=== PATIENT | female | born 1985 | race Caucasian/White ===

== ENCOUNTER 2024-06-01 18:08 | Observation (INO) | payer OTHER, SELFPAY ==
[2024-06-01 18:09] VITALS: BP 143/98; PULSE 72; RESP 16; TEMP 36.3; O2SAT 100; BMI 35.8
--- NOTE | 2024-06-01 18:58 | EDS_ITS ---
HPI History of Present Illness Chief Complaint: Abd Pain [facility] Medical History (Updated 08/12/20 @ 10:[address] Josh Morales MD) Insulin resistance PCOS (polycystic ovarian syndrome) H/O Loco thyroiditis Hypothyroid Home Medications ?Medication ?Instructions ?Recorded ?Last Taken ?Type levothyroxine 125 mcg capsule 125 mcg PO DAILY #90 cap s 08/12/20 Unknown Rx spironolactone 50 mg tablet ea PO 08/12/20 Unknown His tory Allergy/AdvReac Type Severity Reaction Status Date / Time No Known Allergies Allergy Unverified 08/12/20 09:44 Social History Smoking Status: Never smoker EXAM Physical Exam Const Vital Signs: 06/01/24 18:09 06/01/24 20:22 06/01/24 22:00 Temperature 97.3 F L Temperature Source Temporal Pulse Rate 72 67 79 Respiratory Rate 16 18 16 Blood Pressure 143/98 H 136/79 H 135/78 H Blood Pressure Mean 113 98 97 Pulse Ox 100 100 98 Oxygen Delivery Method Room Air Room Air Room Air MDM MDM MDM Narrative Medical decision making narrative: \ HISTORY OF PRESENT ILLNESS: Patient is a female history of PCOS presents right lower quadrant abdominal pain. The patient states 4 days of right sided mid abdominal pain. It is worse with food. Notes bloating and burping. Denies vomiting but notes nausea. Denies melena hematochezia. Denies history of abdominal surgeries. Denies urinary complaint such as frequency urgency or dysuria. Denies vaginal bleeding or discharge. REVIEW OF SYSTEMS: Pertinent positives: Abdominal pain Pertinent negatives: Vomiting PHYSICAL EXAM: Nursing triage notes reviewed, Vital signs reviewed Constitutional: please see mdm HENT: MMM Eyes: Pupils equal round and reactive to light, Extraocular muscles intact Neck: No stridor, no JVD, full neck ROM Lungs: Clear to auscultation, No wheezing or rales. No increased work of breathing, no conversational dyspnea, no accessory muscle use, no nasal flaring. No respiratory distress noted Heart: Regular rate and rhythm, No murmurs, No rubs and No gallops, 2+ distal pulses (radial, femoral, posterior tibial) in all extremities Abdomen: Soft, diffuse TTP, no rigidity, rebound or guarding, no obvious peritoneal signs, no palpable pulsatile abdominal masses, no auscultated abdominal bruit : No CVAT Extremities: No edema Neuro: No new focal neurological deficits, cranial nerves II through XII intact, 5/5 strength in all present extremities. Intact sensation to light touch in all present extremities, 2+ reflexes bilateral patella tendons. Skin: No rash or lesions noted MEDICAL DECISION MAKING: Chief Complaint: As per HPI External records reviewed: Reviewed prior imaging studies Factors affecting care: as per [facility] Social determinants of health: Denies alcohol History obtained from others: none Consults: none [facility] Narrative: The patient was initially hemodynamically stable, afebrile and nontoxic-zara earing. Exam with diffuse TTP but no peritoneal signs. I considered the following differential diagnosis: AAA, small bowel obstruction, abdominal perforation, appendicitis, pancreatitis, hepatobiliary pathology (acute cholecystitis), mesenteric ischemia, pathology (ie nephrolithiasis, pyelonephritis). I obtained a broad lab and imaging workup to further elucidate etiology of patient's complaints. I initially treated the patient with 4 mg of IV Zofran and 20 mg of IV Pepcid. ALL IMAGES (IF OBTAINED) HAVE BEEN PERSONALLY REVIEWED AND INTERPRETED BY MYSELF. Urine test negative CBC without leukocytosis, severe anemia, no thrombocytopenia. CMP without evidence of acute kidney injury, significant electrolyte abnormality, anion gap to suggest end organ hypo-perfusion, no evidence of metabolic acidosis with a normal bicarbonate, no evidence of hepatobiliary obstructive pathology Lipase is wnl indicating no pancreatic inflammation. CT scan of the abdomen pelvis shows concern for gallbladder sludge, pericholecystic fluid potentially acute cholecystitis. Will obtain a right upper quadrant ultrasound. Her precautions pending at this time On re-evaluation patient continues to complain of mild right side abdominal pain. Will give 2 mg IV morphine. Continues have a negative Gardner sign and no peritoneal signs. Ordered right upper quadrant ultrasound. Ultrasound is pending at this time. Signed out to p.m. physician pending ultrasound result and final disposition. The patient and/or family, caregivers express understanding. The patient and/or family, caregivers agrees with the plan. Shared decision making: I will have a discussion with the patient and or visitors regarding risk/benefits of further testing or admission. They will be made aware of of the risk/benefits inherent in this decision they will be given the opportunity to voice understanding. Total critical care time today provided was at least 0 minutes. This excludes separately billable procedures. Critical care time (if documented) is secondary to the patient having high probability of clinically significant/life threatening deterioration in the patient's condition which required my urgent intervention. Impression: 1. Acute abdominal pain 2. Gallbladder sludge Dispo: [] This note was generated with [facility] dictation software. It may contain incorrect words, spelling, and punctuation that were not noted in review of the chart prior to signing. Lab Data Labs: Laboratory Results - last 24 hr 06/01/24 06/01/24 18:25 20:25 WBC 8.4 RBC 5.18 Hgb 14.6 Hct 42.5 MCV 82.0 MCH 28.2 MCHC 34.4 RDW Std Deviation 38.5 RDW Coeff of Ashley 12.9 Plt Count 326 MPV 10.0 Immature Gran % (Auto) 0.400 Neut % (Auto) 57.6 Lymph % (Auto) 31.9 [place] % (Auto) 8.3 Eos % (Auto) 1.3 Baso % (Auto) 0.5 Absolute Neuts (auto) 4.9 Absolute Lymphs (auto) 2.69 Nucleated RBC % 0 Sodium 140 Potassium 3.6 Chloride 106 Carbon Dioxide 20.2 L Anion Gap 14 BUN 10 Creatinine 0.81 Estim Creat Clear Calc 118.89 Est GFR (MDRD) Non-Af 97 BUN/Creatinine Ratio 12.7 Glucose 67 L Calcium 9.1 Total Bilirubin 0.20 AST 24 ALT 21 Alkaline Phosphatase 65 Total Protein 6.4 Albumin 4.1 Globulin 2.3 Albumin/Globulin Ratio 1.8 Lipase 34 Urine Test Negative Radiography Diagnostic Testing: Clinical Impression(s) from Imaging Studies Abdomen/Pelvis CT 06/01/24 19:46 IMPRESSION: Probable gallbladder sludge with gallbladder wall thickening and pericholecystic fluid. Moderate extrahepatic biliary ductal dilation. No intrahepatic biliary ductal dilation. Correlation with focused right upper quadrant ultrasound is recommended. Reading Location: [facility] Discharge Plan Triage Chief Complaint: Abd Pain ED Provider: Kiet White Dx/Rx/DC Orders Prescriptions: No Action spironolactone 50 mg tablet PO Patient Comments: take 1 tablet by mouth once daily for 1 week then INCREASE to 2 tablets daily levothyroxine 125 mcg capsule 125 mcg PO DAILY Qty: 90 3RF Primary Care Provider: Lora Diego Referrals: Johnathon,Lora PA, PA [Primary Care Provider] - Print Language: Ghanaian
--- NOTE | 2024-06-01 19:46 | CT_ITS ---
PROCEDURE: ABDOMEN/PELVIS W IV CONT ONLY 06/01/2024 REASON FOR EXAM: 38-year-old female, right lower quadrant abdominal pain x5 days with nausea. History of PCOS. TECHNIQUE: Abdomen and pelvis CT with intravenous contrast. Coronal and Sagittal reconstruction series were provided. PATIENT PREPARATION: Per protocol ORAL CONTRAST TYPE: None. CONTRAST: Isovue-300 VOLUME: 100mL One or more dose reduction techniques were used (e.g., Automated exposure control, adjustment of the mA and/or kV according to patient size, use of iterative reconstruction technique. RADIATION DOSE SUMMARY: CTDlvol: 30 mGy DLP: 1100 mGycm COMPARISON: None. FINDINGS: Lung bases: The lung bases are clear. The heart is normal in size. Liver: The liver is normal in size without focal hepatic mass. The major portal veins are patent. No biliary ductal dilation. Gallbladder: Probable sludge within the gallbladder with mild gallbladder wall thickening and pericholecystic fluid. Moderate extrahepatic biliary ductal dilation. Spleen: Unremarkable. Pancreas: Unremarkable. Adrenals: Unremarkable. Kidneys: No hydronephrosis or nephrolithiasis. Small bilateral renal cysts and additional hypodensities. Bladder: Decompressed. Reproductive Organs: Normal uterine size and contour. Ovaries are unremarkable with physiologic left corpus luteum. Bowel: The bowel loops are normal in caliber. No ascites or pneumoperitoneum. Normal appendix. Lymph nodes: Prominent periportal and central mesenteric lymph node, likely reactive. Vasculature: The abdominal aorta and IVC are normal. Bones: Mild degenerative changes of the thoracolumbar spine. No aggressive osseous lesions. CT/Abdomen/Pelvis W IV Cont ONLY IMPRESSION: Probable gallbladder sludge with gallbladder wall thickening and pericholecysti c fluid. Moderate extrahepatic biliary ductal dilation. No intrahepatic biliary ductal dilation. Correlation with focused r ight upper quadrant ultrasound is recommended. Reading Location: [id number]
[2024-06-01] MEDS: Ondansetron 4 MG/2 ML Vial IV (19:53)
[2024-06-01 19:57] LABS: Absolute Lymphocyte Count 2.69 X10^3/uL (0.83-4.51); Absolute Neutrophil Count 4.9 X10^3/uL (2.0-7.7); Basophil# 0.04 X10^3/uL; Basophil% 0.5 % (0-1); Eosinophil# 0.11 X10^3/uL; Eosinophils% 1.3 % (0-5); Hematocrit 42.5 % (37-47); Hemoglobin 14.6 g/dL (12.0-15.0); Lymphocyte # 2.69 X10^3/ul (0.83-4.51); Lymphocyte % 31.9 % (19-41); Mean Corp Hgb Conc 34.4 g/dL (32-36); Mean Corpuscular Hgb 28.2 pg (27.0-32.0); Monocyte% 8.3 % (0-10); NRBC Flagged by Analyzer 0 % (0-5); Neutrophil # 4.85 X10^3/uL (2.7-7.7); Neutrophil % 57.6 % (47-70); Platelet Count 326 K/mm3 (150-450); RBC Distribution Width CV 12.9 % (11.6-14.6); RBC Distribution Width SD 38.5 fl (35.1-43.9); Red Blood Count 5.18 M/mm3 (4.2-5.4); White Blood Count 8.4 K/mm3 (4.4-11.0)
[2024-06-01] MEDS: Famotidine 200 MG/20 ML MDV 20 MG in 0.9% Normal Saline (Pres. free 8 ML 300 MG IV (20:03)
[2024-06-01] MEDS: Sucralfate 1 GM Tablet PO (20:03)
[2024-06-01 20:22] VITALS: BP 136/79; PULSE 67; RESP 18; O2SAT 100
[2024-06-01 20:36] LABS: Internal QC Validated? YES +Cl - CLEAR BKGD
[2024-06-01 20:37] LABS: Pregnancy, Urine Negative Negative
[2024-06-01 20:38] LABS: ALB/GLOB Ratio 1.8 RATIO (0.9-2.4); AST(SGOT) 24 U/L (<=31); Alanine Aminotransfer ALT/SGPT 21 U/L (<=34); Albumin, Serum 4.1 g/dL (3.5-5.0); Alkaline Phosphatase 65 U/L (35-104); Anion Gap 14 (5-15); BUN 10 mg/dL (4-19); BUN/Creat Ratio 12.7 RATIO (10-20); Calcium,Total 9.1 mg/dL (7.6-11.0); Carbon Dioxide 20.2 mmol/L (21.0-32.0); Chloride 106 mmol/L (98-108); Creatinine, Serum 0.81 mg/dL (0.70-1.20); EST Glomerular Filtration Rate 97 (>60); Estimated Creatinine Clearance 118.89 ml/min (50-250); Globulin 2.3 g/dL (2.2-4.2); Glucose 67 mg/dL (70-99); Lipase 34 U/L (13-75); Potassium 3.6 mmol/L (3.3-5.1); Protein, Total 6.4 g/dL (5.9-8.4); Sodium Level 140 mmol/L (133-145)
[2024-06-01 22:00] VITALS: BP 135/78; PULSE 79; RESP 16; O2SAT 98
--- NOTE | 2024-06-01 22:55 | US_ITS ---
PROCEDURE: GALLBLADDER 06/01/2024 REASON FOR EXAM: 38-year-old female, right-sided abdominal pain. COMPARISON: Same day CT abdomen pelvis. FINDINGS: Liver: Grossly normal size and echotexture. Normal in size measuring 15.5 cm. Gallbladder: Normal in size with layering sludge/stones, with posterior acoustic shadowing. The gallbladder is thickened. No pericholecystic fluid. Positive Gardner sign reported by the registered vascular technologist (rvt). Common bile duct: Normal measuring 0.6 cm. Pancreas: Visualized portions are sonographically unremarkable. Other: Visualized portions of the right kidney are unremarkable. No right upper quadrant ascites. US/Gallbladder IMPRESSION: Findings compatible with acute cholecystitis. Reading Location: [id number]
[2024-06-01] MEDS: Ketorolac 15 MG/ML Vial IV (23:40)
[2024-06-02] VITALS (15 sets, daily range): BP systolic 112–144; BP diastolic 66–90; PULSE 53–88; RESP 16–18; TEMP 36.5–37.2; O2SAT 97–100; BMI 35.7
[2024-06-02] MEDS: Piperacil/Tazobactam 3.375 GM in 0.9% Normal Saline (50mL MB+) 50 ML IV ×2 (01:04→06:17)
--- NOTE | 2024-06-02 01:24 | EKG12_ITS ---
Test Reason : PRE OP Blood Pressure : */* mmHG Vent. Rate : 61 BPM Atrial Rate : 61 BPM P-R Int : 158 ms QRS Dur : 96 ms QT Int : 460 ms P-R-T Axes : 15 52 30 degrees QTcB Int : 463 ms Normal sinus rhythm Normal ECG No previous ECGs available Confirmed by JOVANNA CARRANZA, ZACH ([id number]), video effects editor LEO KOCH ([id number]) on 06/06/2024 8:32:05 AM Referred By: Confirmed By: ZACH NUGENT MD
[2024-06-02 02:12] LABS: Free T3 2.8 pg/mL (2.18-3.98); Thyroid Stim Hormone (TSH) 0.751 uIU/mL (0.300-4.200)
[2024-06-02] MEDS: 0.9% Normal Saline (1000mL) 1,000 ML 120 ML IV (02:52)
[2024-06-02] MEDS: Pantoprazole Sodium 40 MG in 0.9% Normal Saline (100mL MB+) 100 ML 330 MG IV ×2 (02:53→12:21)
[2024-06-02 06:54] LABS: Absolute Lymphocyte Count 2.52 X10^3/uL (0.83-4.51); Absolute Neutrophil Count 4.4 X10^3/uL (2.0-7.7); Basophil# 0.04 X10^3/uL; Basophil% 0.5 % (0-1); Eosinophil# 0.12 X10^3/uL; Eosinophils% 1.5 % (0-5); Hematocrit 40.3 % (37-47); Hemoglobin 13.6 g/dL (12.0-15.0); Lymphocyte # 2.52 X10^3/ul (0.83-4.51); Lymphocyte % 32.5 % (19-41); Mean Corp Hgb Conc 33.7 g/dL (32-36); Mean Corpuscular Hgb 27.7 pg (27.0-32.0); Mean Corpuscular Volume 82.1 fL (81-99); Mean Platelet Vol. 9.6 fl (6.2-12.0); Monocyte# 0.63 X10^3/uL; Monocyte% 8.1 % (0-10); NRBC Flagged by Analyzer 0 % (0-5); Neutrophil # 4.42 X10^3/uL (2.7-7.7); Neutrophil % 57.1 % (47-70); Platelet Count 261 K/mm3 (150-450); RBC Distribution Width CV 12.9 % (11.6-14.6); RBC Distribution Width SD 38.2 fl (35.1-43.9); Red Blood Count 4.91 M/mm3 (4.2-5.4); White Blood Count 7.8 K/mm3 (4.4-11.0)
--- NOTE | 2024-06-02 07:22 | PCM.HP.STD ---
HPI - General General Date of Admission: 06/02/24 HPI Narrative KAREN OZUNA, is a 38 F who presents due to right upper quadrant pain. Patient states pain since Wednesday night. Patient is not really eaten for the last 2 days. Patient said nausea denies any vomiting. Patient CT abdomen pelvis as well as an ultrasound showed acute cholecystitis some wall thickening no Boni cholecystic fluid positive Gardner sign normal common bile duct normal LFTs. Patient was started on Zosyn 3.375 g IV every 8 hours for acute cholecystitis [facility] Medical History (Updated 06/02/24 @ 07:[address] Laurie Veliz MD) Insulin resistance PCOS (polycystic ovarian syndrome) H/O Loco thyroiditis Hypothyroid Home Medications ?Medication ?Instructions ?Recorded ?Last Taken ?Type ondansetron 4 mg disintegrating 4 mg PO Q8H PRN PRN Nausea #10 tabs 06/01/24 Unknown Rx tablet pantoprazole 20 mg tablet,delayed 20 mg PO DAILY #30 tabs 06/01/24 Unknown Rx release (Protonix) Allergy/AdvReac Type Severity Reaction Status Date / Time No Known Allergies Allergy Unverified 08/12/20 09:44 Social History Smoking Status: Never smoker Vital Signs Vital Signs Vital Signs: 06/01/24 18:09 06/01/24 20:22 06/01/24 22:00 Temperature 97.3 F L Temperature Source Temporal Pulse Rate 72 67 79 Respiratory Rate 16 18 16 Respiratory Effort Respiratory Depth Respiratory Pattern Blood Pressure 143/98 H 136/79 H 135/78 H Blood Pressure Mean 113 98 97 Blood Pressure Source Blood Pressure Position Blood Pressure Location Pulse Ox 100 100 98 Oxygen Delivery Method Room Air Room Air Room Air 06/02/24 00:00 06/02/24 01:42 06/02/24 02:11 Temperature 98 F Temperature Source Pulse Rate 88 55 L Respiratory Rate 18 16 Respiratory Effort Normal Non-Labored Respiratory Depth Normal Respiratory Pattern Normal Blood Pressure 144/74 H 136/80 H Blood Pressure Mean 97 98 Blood Pressure Source Blood Pressure Position Blood Pressure Location Pulse Ox 97 99 Oxygen Delivery Method Room Air Room Air 06/02/24 02:22 06/02/24 03:05 06/02/24 07:14 Temperature 98 F 97.7 F L Temperature Source Oral Oral Pulse Rate 55 L 59 L Respiratory Rate 17 18 Respiratory Effort Respiratory Depth Respiratory Pattern Blood Pressure 131/84 H 130/80 H Blood Pressure Mean 99 96 Blood Pressure Source Monitor Monitor Blood Pressure Position Semi-Fowlers Semi-Fowlers Blood Pressure Location Left Arm Right Arm Pulse Ox 99 99 100 Oxygen Delivery Method Room Air Room Air Room Air Weight Weight: 228 lb 2.855 oz Body Mass Index (BMI) 35.7 Physical Exam Const alert, oriented x3 and no apparent distress HEENT normocephalic and head/scalp atraumatic Resp normal respiratory effort Cardio regular rate GI soft to palpation; Negative for non-distended Palpation: tender RUQ and Gardner's sign; Negative for guarding Extremity no clubbing, cyanosis or edema Neuro CN's II-XII intact bilaterally Psych mental status grossly normal Results Lab / Micro Data 06/02/24 06:08 06/01/24 18:25 Labs: Laboratory Results - last 24 hr 06/01/24 18:25: WBC 8.4, RBC 5.18, Hgb 14.6, Hct 42.5, MCV 82.0, MCH 28.2, MCHC 34.4, RDW Std Deviation 38.5, RDW Coeff of Ashley 12.9, Plt Count 326, MPV 10.0, Immature Gran % (Auto) 0.400, Neut % (Auto) 57.6, Lymph % (Auto) 31.9, [place] % (Auto) 8.3, Eos % (Auto) 1.3, Baso % (Auto) 0.5, Absolute Neuts (auto) 4.9, Absolute Lymphs (auto) 2.69, Nucleated RBC % 0, Sodium 140, Potassium 3.6, Chloride 106, Carbon Dioxide 20.2 L, Anion Gap 14, BUN 10, Creatinine 0.81, Estim Creat Clear Calc 118.89, Est GFR (MDRD) Non-Af 97, BUN/Creatinine Ratio 12.7, Glucose 67 L, Calcium 9.1, Total Bilirubin 0.20, AST 24, ALT 21, Alkaline Phosphatase 65, Total Protein 6.4, Albumin 4.1, Globulin 2.3, Albumin/Globulin Ratio 1.8, Lipase 34, TSH 0.751, Free T4 1.00, Free T3 pg/dL 2.8 06/01/24 20:25: Urine Test Negative 06/02/24 06:08: WBC 7.8, RBC 4.91, Hgb 13.6, Hct 40.3, MCV 82.1, MCH 27.7, MCHC 33.7, RDW Std Deviation 38.2, RDW Coeff of Ashley 12.9, Plt Count 261, MPV 9.6, Immature Gran % (Auto) 0.300, Neut % (Auto) 57.1, Lymph % (Auto) 32.5, [place] % (Auto) 8.1, Eos % (Auto) 1.5, Baso % (Auto) 0.5, Absolute Neuts (auto) 4.4, Absolute Lymphs (auto) 2.52, Nucleated RBC % 0 Imaging Radiology Impression Abdomen/Pelvis CT 06/01/24 19:46 IMPRESSION: Probable gallbladder sludge with gallbladder wall thickening and pericholecystic fluid. Moderate extrahepatic biliary ductal dilation. No intrahepatic biliary ductal dilation. Correlation with focused right upper quadrant ultrasound is recommended. Reading Location: [facility] Gallbladder Ultrasound 06/01/24 22:55 IMPRESSION: Findings compatible with acute cholecystitis. Reading Location: [facility] Assessment & Plan Assessment/Plan (1) Acute cholecystitis due to biliary calculus: PLAN: Plan Reviewed the anatomy with the patient and discussed the procedure: laparoscopic cholecystectomy with possible cholangiograms, possible open. Review risks including but not limited to bleeding, infection, hernia, bile leak, retained gallstones requiring another procedure ERCP- Endoscopic Retrograde Cholangiopancreatography, injury to another organ (bile ducts, common bile duct, small bowel, etc.) may require transfer to tertiary care facility and conversion to an open procedure. All questions were answered. Laurie Veliz M.D. Pager: [phone] [facility] [address] [place] [address], [facility], [address] [place] [address] Office: [phone]
--- NOTE | 2024-06-02 07:34 | NURSING ---
called issac per pt request to alert of pt going to surgery at this time. all questions answered.
--- NOTE | 2024-06-02 08:00 | GALL_PTH ---
PATIENT: MELISSA STACY LOC: MS3 U#:[id number] AGE/SX: 38/F ROOM: MO315 RE06/02/[address]: Dr. Laurie Veliz MD : 1985 BED: 1 DIS: 06/02/2024 SPEC #: [id number] RECD: 06/02/24 13:43 STATUS: CHAIM REHeather #: [id number] JOHN: 06/02/24 08:[address]: Laurie Veliz DEPT: SURGICAL PATHOLOGY RECD BY: Duke Mccoy ENTERED: 06/02/24 13:43 SP TYPE: JC JOSEPH DR: JENNA Costa Tissues: A - Gallbladder, NOS Procedures: Surgery Specimen Level III HEADER OPERATION: Laparoscopic, cholecystectomy with IOC PRE-OP DIAGNOSIS: Acute cholecystitis due to biliary calculus TISSUE SUBMITTED: A- Gallbladder and contents MICROSCOPIC DIAGNOSIS A. GALLBLADDER, CHOLECYSTECTOMY:- CHRONIC CHOLECYSTITIS WITH ADENOMYOMATOUS HYPERPLASIA. * CHOLELITHIASIS. MICROSCOPIC DESCRIPTION Slides are reviewed. GROSS DESCRIPTION Received in formalin labeled, Melissa Stacy, and designated gallbladder and contents, is a yellow-rader, previously disrupted gallbladder that measures 9.2 cm long by 3.1 cm in diameter. The mucosa is focally pink-rader and smooth and otherwise red-brown, focally slightly ragged and granular. Sectioning shows a 0.3 cm wall thickness. Within the specimen container there are multiple irregularly-shaped, green calculi that aggregate to 4.0 x 3.0 x 1.5 cm. Office Machine Inspector sections are submitted in one cassette. DARCIE 06/02/2024 CPT:92389
[2024-06-02 08:04] LABS: ALB/GLOB Ratio 1.5 RATIO (0.9-2.4); AST(SGOT) 25 U/L (<=31); Alanine Aminotransfer ALT/SGPT 17 U/L (<=34); Alkaline Phosphatase 55 U/L (35-104); Anion Gap 11 (5-15); BUN 10 mg/dL (4-19); BUN/Creat Ratio 11.7 RATIO (10-20); Calcium,Total 8.7 mg/dL (7.6-11.0); Carbon Dioxide 20.7 mmol/L (21.0-32.0); Chloride 107 mmol/L (98-108); Creatinine, Serum 0.88 mg/dL (0.70-1.20); EST Glomerular Filtration Rate 88 (>60); Estimated Creatinine Clearance 109.33 ml/min (50-250); Globulin 2.6 g/dL (2.2-4.2); Glucose 82 mg/dL (70-99); Potassium 3.7 mmol/L (3.3-5.1); Protein, Total 6.5 g/dL (5.9-8.4); Sodium Level 139 mmol/L (133-145); Total Bilirubin 0.52 mg/dL (0.00-1.30)
--- NOTE | 2024-06-02 08:18 | PCM.PRE.AN2 ---
ASA Classification* ASA Classification ASA Classification: 2 Assessment & Plan Anesthesia* Anesthesia Assessment Anesthesia Assessment: Discussed sedation and/or anesthesia options, risks, benefits, and alternatives with patient/parents/legal guardian/POA. Questions invited. The patient/parents/legal guardian/POA seems to understand and agrees to proceed with anesthesia plan. Reviewed the physical assessment, medical history, allergy history and patient home medications list prior to surgery/procedure/anesthetic and documented any changes. Performed airway and anesthesia risk assessments. Anesthesia Type Anesthesia Type: General Anesthesia Focused Assessment* Temperature: 97.7 F Pulse Rate: 59 Blood Pressure: 130/80 Respiratory Rate: 18 Pulse Ox: 100 Airway Assessment Mouth opens: >3 cm Mallampati Score: II Focused Labs Anesthesia Preop lab: CBC WBC 7.8 K/mm3 (4.4-11.0) 06/02/24 06:08 06/02/24 RBC 4.91 M/mm3 (4.2-5.4) 06/02/24 06:08 06/02/24 Hgb 13.6 g/dL (12.0-15.0) 06/02/24 06:08 06/02/24 Hct 40.3 % (37-47) 06/02/24 06:08 06/02/24 Plt Count 261 K/mm3 (150-450) 06/02/24 06:08 06/02/24 CHEMISTRY Potassium 3.7 mmol/L (3.3-5.1) 06/02/24 06:08 06/02/24 Sodium 139 mmol/L (133-145) 06/02/24 06:08 06/02/24 Magnesium 1.8 mg/dL (1.8-2.4) 11/13/13 17:17 11/13/13 BUN 10 mg/dL (4-19) 06/02/24 06:08 06/02/24 Creatinine 0.88 mg/dL (0.70-1.20) 06/02/24 06:08 06/02/24 Glucose 82 mg/dL (70-99) 06/02/24 06:08 06/02/24 TSH 0.751 uIU/mL (0.300-4.200) 06/01/24 18:25 06/01/24 COAG Urine Test Negative Negative 06/01/24 20:25 06/01/24 Pre-Assessment Diagnosis/Proposed Procedure Planned Operative Procedure(s): Laproscopic Dyan Anesthesia History Anesthesia History - methods analyst data processing: Anesthesia History - methods analyst data processing Hx Hospitalization Any Problems With Anesthesia No 06/02/24 02:21 Cholinesterase deficiency No 06/02/24 02:21 You/Your Family Experience No 06/02/24 02:21 fever (hyperthermia) with Relationship Recent Exposure to Contagious No 06/02/24 02:21 Disease Does patient have nerve No 06/02/24 02:21 stimulator Patient instructed to have No 06/02/24 02:21 device shut off --Does patient have Pacemaker No 06/02/24 07:18 or ICD? When Was Last Pacemaker Check QUESTION #4 FULL TEXT: You/Your Family Experience fever (hyperthermia) with Anesthesia Last Oral Intake Last Oral intake: Last Oral Intake NPO since 00:00 06/02/24 07:18 Meds taken in AM with sips of No 06/02/24 07:18 water? Meds patient instructed to take am of surgery PONV PONV - methods analyst data processing: PONV - methods analyst data processing Female HX of Motion Sickness HX of N/V After Surgery Non-Smoker Duration of Surgery greater than 60 minutes Number of Risk Factors PONV Score Height & Weight Height & Weight: Anesthesia: Height & Weight Height 5 ft 7 in 06/02/24 07:18 Weight: 103.5 kg 06/02/24 07:18 Body Mass Index (BMI) 35.7 06/02/24 07:18 Respiratory Assessment Respiratory Assessment - methods analyst data processing: Respiratory Tract Infection Hx - methods analyst data processing Hx Respiratory Tract Infection Yes: flu a in 06/02/24 02:21 STOP Sleep Apnea STOP Sleep Apnea - methods analyst data processing: STOP Sleep Apnea - methods analyst data processing Hx Hypertension No 06/02/24 02:19 Hx Sleep Apnea No 06/02/24 02:19 CPAP BIPAP Do you snore loudly (louder No 06/02/24 02:19 than talking or can be heard Do you often feel tired/ No 06/02/24 02:19 fatigued/ sleepy during daytime? Has anyone observed you stop No 06/02/24 02:19 breathing during sleep? STOP Results Negative 06/02/24 02:19 QUESTION #5 FULL TEXT : Do you snore loudly (louder than talking or can be heard through closed doors)? Tobacco Use History Tobacco Use History - methods analyst data processing: Tobacco Use History - methods analyst data processing Tobacco Use Smoking Status Never smoker 06/02/24 02:19 Hx Tobacco Use No 06/02/24 02:19 Years Smoking Packs Smoked per Day Smoking Cessation Date was within the last 15 years Hx Smoking Cessation Date Hx Smoking Cessation Counseling Hematologic Medial History Hematologic Hx - methods analyst data processing: Hematologic Medical Hx - logistics assistant Hx of Blood Transfusion No 06/02/24 02:19 Hx of Transfusion in last 3 No 06/02/24 02:19 Months Date of Last Transfusion (if within last 3 months) Ever experience any problems No 06/02/24 02:19 with transfusion(s)? Specify any problems Hx of Preganancy in last 3 No 06/02/24 02:19 Months Nurse Filling Out Transfusion DREDICK 06/02/24 02:19 & Questions: Date: 06/02/24 06/02/24 02:19 Time: 02:19 06/02/24 02:19 Patient unable to answer at this time (ie. confused, unrespo /Reproduction History /Reproductive History - methods analyst data processing: /Reproductive Hx- methods analyst data processing Hx Now No 06/02/24 02:21 Gestational Age (in weeks): EDC: Hx Hx Para Hx Section SAB No 06/02/24 02:21 Active Medications Active Medications: Current Medications Generic Name Dose Route Start Last Admin Trade Name Freq PRN Reason Stop Dose Admin Acetaminophen 650 mg 06/02/24 02:11 Acetaminophen 325 Mg Tablet PO Q6H PRN PRN Pain Score 1-10 Sodium Chloride 1,000 mls @ 120 mls/hr 06/02/24 02:11 06/02/24 02:52 IV 120 mls/hr .Q8H20M RAMY Administration Piperacillin Sod/Tazobactam 50 mls @ 12.5 mls/hr 06/02/24 06:00 06/02/24 06:17 Sod 3.375 gm/ Sodium Chloride IV 12.5 mls/hr Q8 RAMY Administration Pantoprazole Sodium 40 mg/ 110 mls @ 330 mls/hr 06/02/24 02:30 06/02/24 05:36 Sodium Chloride IV Infused Q24 RAMY Infusion Sodium Chloride 100 mls @ 15 mls/hr 06/02/24 02:12 IV .Q6H40M PRN Saline Flush Sodium Chloride 100 mls @ 15 mls/hr 06/02/24 02:12 IV .Q6H40M PRN Additional IVPB Infusion Morphine Sulfate 2 - 4 mg 06/02/24 02:11 Morphine 2 Mg/Ml Syringe IV Q2H PRN PRN Pain Score 1-10 Ondansetron HCl 4 mg 06/02/24 02:11 Ondansetron 4 Mg/2 Ml Vial IV Q8H PRN PRN NAUSEA Oxycodone HCl 5 - 10 mg 06/02/24 02:11 Oxycodone 5 Mg Tablet PO Q4H PRN PRN Pain Score 1-10 Sodium Chloride 10 - 40 ml 06/02/24 02:12 0.9% Saline Lock 10 Ml Syringe IV UD PRN SALINE FLUSH PFSH Medical History Insulin resistance PCOS (polycystic ovarian syndrome) H/O Loco thyroiditis Hypothyroid Home Medications ?Medication ?Instructions ?Recorded ?Last Taken ?Type ondansetron 4 mg disintegrating 4 mg PO Q8H PRN PRN Nausea #10 tabs 06/01/24 Unknown Rx tablet pantoprazole 20 mg tablet,delayed 20 mg PO DAILY #30 tabs 06/01/24 Unknown Rx release (Protonix) Allergy/AdvReac Type Severity Reaction Status Date / Time No Known Allergies Allergy Verified 06/02/24 07:45 Social History Smoking Status: Never smoker Review of Systems (Anesthesia) ROS Narrative System reviewed and no additional complaints, except as documented.
--- NOTE | 2024-06-02 08:55 | RAD_ITS ---
EXAM: EXAM DATE: 06/02/2024 9:22 am PROCEDURE: CHOLANGIOGRAM/ O R,INITIAL CLINICAL HISTORY: LAP JABARI COMPARISON: 06/01/2024 TECHNIQUE: Intraoperative fluoroscopy at the right upper quadrant. FINDINGS: Intraoperative fluoroscopy demonstrates a surgical device in the region of the right upper quadrant with contrast injection. The contrast does not opacify any discernible structure, possibly intraperitoneal. RAD/Cholangiogram/ O R,Initial IMPRESSION: Images obtained for the purpose of intraoperative guidance. Please refer to th e surgical report for additional details. Reading Location: [facility]
[2024-06-02] MEDS: Bupivacaine Mpf 0.5% 30 ML VIAL (10:01)
--- NOTE | 2024-06-02 10:31 | PCM.POST.ANE ---
Anesthesia: Postop Eval I Current Vital Signs Temperature: 98.7 F Pulse Rate: 68 Blood Pressure: 116/76 Respiratory Rate: 16 Pulse Ox: 100 Assessment Airway patent: Yes Spontaneous unlabored respirations: Yes nausea: No Vomiting: No Anesthesia Complication: No Fluid Hydration Crystalloid volume administer (ml): 500 Total IV fluid infused: 500 Progress Note Anesthesia document: Postop Eval 1 completed: Yes
--- NOTE | 2024-06-02 10:50 | OP.PCM_ITS ---
Operative Report (Standard) Operative Information Date of Procedure: 06/02/24 Pre-Operative Diagnosis: Cholelithiasis, acute cholecystitis Post-Operative Diagnosis: Same Surgery/Procedure Performed: Laparoscopic cholecystectomy windows deployment technician: Yes Route Jumper: Paramjit Lamar Tasks completed by first aid nurse: Opening & closing Type of Anesthesia: General/Supplemental RN Documented Start/Stop Times: Operation Date: 06/02/24 08:00 Case Time Into Pre-Op 06/02/24 07:36 Out of Pre-Op 06/02/24 08:26 Anesthesia Start 06/02/24 08:30 Into Room 06/02/24 08:30 Procedure Start 06/02/24 08:51 Procedure End 06/02/24 10:18 Anesthesia End 06/02/24 10:25 Out of Room 06/02/24 10:25 Into Recovery 06/02/24 10:28 Procedure Start Time: 08:51 Procedure Stop Time: 10:18 Select all DRAINS/GRAFTS/IMPLANTS that apply: None Special Medications: Zosyn 3.375 g IV every 8 hours for acute cholecystitis Estimated Blood Loss: 10 cc Specimen collected: Yes Description of specimen(s) removed: gallbladder Description of surgery: Indications: this is a 38 year-old female who developed abdominal pain/nausea/vomiting and on workup was found to have acute cholecystitis, cholelithiasis, with a normal common bile duct, normal LFTs. Laparoscopic cholecystectomy was elected. Description procedure: The patient was placed on operating table in supine position. A timeout was completed verifying correct patient, procedure, site, position and special equipment prior to beginning procedure. General Anesthesia was induced. The abdomen was prepped and draped in usual sterile fashion. An incision was made in the natural skin line above the umbilicus. The fascia was elevated and incised. The peritoneum was elevated and incised. Entry into the peritoneum was confirmed visually and no bowel was noted in the vicinity of the incision. [place] trocar was placed. The abdomen was insufflated with carbon dioxide to a pressure of 12-15 mmHg. Patient tolerated insufflation well. The laparoscope was then inserted and abdomen inspected. No injuries from initial trocar placement were noted. Additional trochars were then inserted in the following locations 5 mm trocar in the epigastrium and 2 more 5 mm trochars along the right costal margin. The abdomen was inspected no abnormalities were found. The table is placed in reverse Trendelenburg position with the right side up. The dome of the gallbladder was grasped with atraumatic grasper passed through the lateral port and retracted over the dome of the liver. Infundibulum was then grasped with atraumatic grasper through the midclavicular port and retracted to the right lower quadrant. This maneuver exposed Calot's triangle. The peritoneum overlying the gallbladder infundibulum was then incised and cystic duct and artery identified and circumferentially dissected. Cholangiograms were attempted with Fernández catheter. There was extravasation of the contrast and a short cystic duct cholangiograms aborted. The cystic duct and artery were then doubly clipped and divided close to the gallbladder. The gallbladder then dissected from its peritoneal attachments by electrocautery. Hemostasis was checked and the gallbladder and contained stones were removed using the endoscopic retrieval bag through the umbilical port. The gallbladder is passed off table as specimen. The gallbladder fossa was irrigated with saline and hemostasis obtained. There is no evidence of bleeding from the gallbladder fossa or cystic artery leakage of bile from the cystic duct stump. Secondary trochars removed under direct vision. No bleeding was noted the trocar sites. The laparoscope was withdrawn and umbilical trocar removed. The abdomen was allowed to collapse. The fascia of the 12 mm trocar was closed with a [id number] 0 Vicryl suture. The skin was closed with sutures of 4-0 Monocryl and Steri-Strips. The patient was extubated. The patient tolerated procedure well and was taken to the postanesthesia care unit in stable condition. Surgical Findings: See operative report Complications Complications: No
--- NOTE | 2024-06-02 10:50 | DCINST_ITS ---
Discharge Instructions Diet Discharge Diet: Light diet - advance as tolerated Activity Discharge Activity: May Not Drive (while taking narcotic pain medications.) May shower in (days): 1 Lifting Restrictions: no lifting >20 lbs x 2 wks, no strenuous exercise for 4 wks Dressing / Incision Call your doctor if your incision/area has: Continuous Slow Oozing, Sudden Increased Bleeding, Increased Pain/ Swelling, Increased Redness, Foul Smelling Discharge and Swelling at the incision site Call your doctor if you observe: Fever of 101 or Higher Remove Dressing in: 2 days Cleanse incision/area with: Soap & Water Additional Dressing/Incision Instructions:: Steri-Strips will fall off in 7 to 10 days, if they do not fall off okay to remove after 10 days. Follow Up Care Please Follow Up With: Laurie Veliz MD When: Call the office for a follow-up appointment 2 weeks; after 5 PM and on the weekends call [phone] with any concerns. Test Results: Test results from this visit will be discussed in further detail at your follow- up appointment, if applicable. Discharge Plan Admission Admit Date/Time: 06/02/24 01:25 Attending Provider: Laurie Veliz Primary Care Provider: Lora Diego Discharge Orders/Prescriptions Prescriptions: New pantoprazole [Protonix] 20 mg tablet,delayed release (DR/EC) 20 mg PO DAILY Qty: 30 0RF ondansetron 4 mg tablet,disintegrating 4 mg PO Q8H PRN PRN (Reason: Nausea) Qty: 10 0RF oxycodone 5 mg capsule 5 mg PO Q6H PRN (Reason: pain) 3 Days Qty: 10 0RF Referrals / Follow Up: Laurie Veliz MD [Med Staff - Active Staff] - Lora Diego PA [Primary Care Provider] - Disposition Disposition (needs filled in before D/C Order can be placed): Home, Self Care
--- NOTE | 2024-06-02 11:17 | POSTOPAN2_ITS ---
Anesthesia Postop Eval I Sum Postop Eval Completion status Anesthesia document: Postop Eval 1 completed: Yes Anesthesia Postop Eval I Summary Anesthesia Postop Eval I Summary: Anesthesia Postop Eval I: Assessment Summary Airway patent Yes 06/02/24 10:31 [employer].[email or web address] Spontaneous unlabored Yes 06/02/24 10:31 [email or web address] respirations Mental status nausea No 06/02/24 10:31 [email or web address] Vomiting No 06/02/24 10:31 [employer].[email or web address] Anesthesia Postop Eval I: Fluid Summary Crystalloid volume administer 500 06/02/24 10:31 [employer].TMEN (ml) Colloids volume administered ( ml) Blood Product volume administered (ml) Total IV fluid infused 500 06/02/24 10:31 [employer].[email or web address] Anesthesia Postop Eval I: Summary Notes Anesthesia Complication No 06/02/24 10:31 [employer].[email or web address] Anesthesia Complication Comment: Post-operative progress note Anesthesia: Postop Eval II Evaluation Mental status: Awake Pain Level: 1 nausea: No Vomiting: No
--- NOTE | 2024-06-02 11:17 | PCM.POSTANE2 ---
Anesthesia Postop Eval I Sum Postop Eval Completion status Anesthesia document: Postop Eval 1 completed: Yes Anesthesia Postop Eval I Summary Anesthesia Postop Eval I Summary: Anesthesia Postop Eval I: Assessment Summary Airway patent Yes 06/02/24 10:31 [employer] SAL[employer] ASSOCIATE.[email or web address] Spontaneous unlabored Yes 06/02/24 10:31 [employer]ATE.[email or web address] respirations Mental status nausea No 06/02/24 10:31 [employer]ATE.[email or web address] Vomiting No 06/02/24 10:31 [employer] ASSOC[employer]ATE.[email or web address] Anesthesia Postop Eval I: Fluid Summary Crystalloid volume administer 500 06/02/24 10:31 [employer] ASSOCIATE.TMEN (ml) Colloids volume administered ( ml) Blood Product volume administered (ml) Total IV fluid infused 500 06/02/24 10:31 [employer] ASSOCIATE.TMEN Anesthesia Postop Eval I: Summary Notes Anesthesia Complication No 06/02/24 10:31 [employer]OC[employer].TMEN Anesthesia Complication Comment: Post-operative progress note Anesthesia: Postop Eval II Evaluation Mental status: Awake Pain Level: 1 nausea: No Vomiting: No
[2024-06-02] MEDS: Acetaminophen 325 MG Tablet 650 MG PO (12:18)
[2024-06-02] MEDS: oxyCODONE 5 MG Tablet PO ×2 (12:18→16:17)
== END 2024-06-02 16:35 | disposition home or self-care (01) ==
LOC: ED 18:57 → MS3 06-02 01:57
PROVIDERS: Emergency Medicine; Admitting Provider Surgery; Emergency Provider Emergency Medicine; PCP Physician Assistant Medical; Visit Provider Surgery
PROC: (CPT 47610; principal; 2024-06-02 07:40)
DX: K80.12 Calculus of gallbladder with acute and chronic cholecystitis without obstruction (principal); E28.2 Polycystic ovarian syndrome; Z86.39 Personal history of other endocrine, nutritional and metabolic disease
CPT/HCPCS: 47562; 00790; 36415; 74177; 74300; 76000; 76705; 80053; 81025; 83690; 84439; 84443; 84481; 85025; 88304; 93005; 94668; 96361; 96365; 96366; 96367; 96375; 99221; 99284; Q9967; A4216; G0378; J2405